=== PATIENT | female | born 1990 | race Caucasian/White ===

== ENCOUNTER 2019-03-09 16:42 | Emergency (ER) | payer OTHER ==
--- OUTSIDE RECORDS SUMMARY | 2019-03-09 17:07 | XMS REPORT | Continuity of Care Document ---
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 Onset: 06/10/2017 Mild intermittent asthma Maureen Rawls M.D. Onset: 06/10/2017 Malaise and fatigue Maureen Rawls M.D. Onset: 07/16/2017 Depressive disorder Angella Harp FNP Onset: 12/10/2017 Tobacco user Angella Harp FNP Onset: 12/10/2017 Disturbance in speech Angella Harp FNP Onset: 12/10/2017 Social History Type Date Description Comments Sex Unknown ETOH Use Denies alcohol use Tobacco Use Start: Unknown Heavy tobacco smoker (more than 10 cigarettes/day) Smoking Status Reviewed: 01/12/19 Heavy tobacco smoker (more than 10 cigarettes/day) Allergies, Adverse Reactions, Alerts Description No Known Drug Allergies Medications Active Medications SIG Qnty Indications Ordering Date Provider Quetiapine Fumarate take 1 tablet by 60tabs F41.9 Katiuska, 06/06/2018 mouth 1 hour prior Jenniferleigh, 25mg Tablets to sleep,if no 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 MACHINE OPERATOR improvement in 3 days,may try 2 tablets as needed up to 4 tablets at night Buspirone HCL take 1-2 tablet by 120tabs F41.9 Katiuska, 12/10/2017 5mg mouth three times a Jenniferleigh, Tablets day as needed for 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 MACHINE OPERATOR anxiety/panic attacks Terbinafine HCL apply to effected 30gm B35.1 Nayely, Mary, 09/14/2017 1% toenails bid PNP-BC, 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 MACHINE OPERATOR, Cream Ibclc Ventolin HFA 1-2 puffs every 4-6 8gm J45.20 Clune, 06/10/2017 hours as needed Angella, 108(90Base) mcg/Act 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 MACHINE OPERATOR Aerosol Lexapro 1/2 tablet by mouth 30tabs F41.9 Clune, 20mg every day x 1 week Angella Tablets then increase to 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 MACHINE OPERATOR full tablet Fluticasone Unknown Propionate 50mcg/Act Suspension Cephalexin Take One Capsule By Unknown 500mg Mouth Every 6 Hours Capsules Mupirocin Apply Three Times A Unknown 2% Day Ointment Immunizations CPT Code Status Date Vaccine Lot # 73051 Given 02/14/2018 Influenza Virus Vaccine, Quadrivalent, 36 Mos+, [id number] .[id number] 68446 Given 03/03/2012 flu vaccination 59100 Given 03/06/2011 flu vaccination 34662 Given 11/24/2010 Gardasil 96696 Given 09/23/2010 Gardasil 54265 Given 05/29/2010 Gardasil 65221 Given 02/25/2010 flu vaccination Vital Signs Date Vital Result Comment 01/12/2019 9:22am BP Systolic Sitting Right Arm 106 mmHg BP Diastolic Sitting Right Arm 68 mmHg Heart Rate 90 /min Respiratory Rate 17 /min Height 67 inches 5'7" Weight 204.00 lb BMI (Body Mass Index) 31.9 kg/m2 BSA (Body Surface Area) 2.04 m2 [place] body weight in kilograms 61 kg 08/18/2018 3:37pm BP Systolic 124 mmHg BP Diastolic 74 mmHg Heart Rate 112 /min Respiratory Rate 17 /min Height 67 inches 5'7" Weight 214.12 lb BMI (Body Mass Index) 33.5 kg/m2 BSA (Body Surface Area) 2.08 m2 [place]lass body weight in kilograms 61 kg O2 % BldC Oximetry 98 % Results Test Date Facility Test Result H/L Range Note Laboratory test 08/18/[address] Vitamin D,1,25 32.6 pg/mL 19.9-79.3 1, [address] Dihydroxy [place], [place] [id number] [phone] Thyroid Stim Hormone 1.64 uIU/mL Normal 0.30-4.20 CBC W/Automated 08/18/[address] [facility] [address] White Blood 7.2 K/uL Normal 3.1-10.[address] Count [place], [place] [id number] [phone] Red Blood Count 4.29 M/uL Normal 3.90-5.40 Hemoglobin 12.2 gm/dL Normal 11.6-15.8 Hematocrit 38.5 % Normal 36.0-46.1 Mean Cell Volume 89.7 fl Normal 80.9-99.0 Mean Corpuscular HGB 28.4 pg Normal 25.9-32.7 Mean Corpuscular HGB Conc 31.7 g/dL Normal 30.8-34.3 Platelet Count 198 K/uL Normal 155-360 3 Red Cell Distri Width SD 45.7 fl Normal 36-47 Red Cell Distri Width %CV 14.1 % Normal 11.7-14.4 Mean Platelet Volume 13.7 fl High 8.9-12.4 Neut% 71.6 % Normal 40.4-72.8 Lymph % 18.6 % Low 20.0-42.0 [place] % 7.7 % Normal 4.3-13.2 Eo% 1.5 % Normal 0.0-6.6 Bas% 0.3 % Normal 0.0-1.1 Immature Grans 0.3 % Normal 0.0-5.0 NRBC % 0.0 /100WBC < 10/ 100 WBC Neut# 5.18 K/uL Normal 1.8-7.0 Lymph # 1.35 K/uL Normal 1.0-4.0 [place] # 0.56 K/uL Normal 0.3-0.9 Eos # 0.11 K/uL Normal 0.0-0.5 Baso # 0.02 K/uL Normal 0.0-0.1 Immature Grans Absolute 0.02 K/uL NRBC # 0.00 K/uL Laboratory 08/08/2018 [facility] D-Dimer, 0.29 ug/mL 4, 5 test finding [address] [place] [address] [phone] Urine HCG 08/08/2018 [facility] Urine HCG NEGATIVE Negative 6 (Qualitative) [address] (Qualitative) [place] [address] [phone] Source: URINE, CLEAN CAT <SEE NOTE> 7 Ua RFX Micro & Culture 08/08/2018 [facility] Urine Color YELLOW Yellow II [address] [place] [address] [phone] Urine Clarity CLEAR Clear Urine Glucose - Dipstick NEGATIVE mg/dL Negative Urine Bilirubin - Dipstick NEGATIVE Negative Urine Ketone NEGATIVE mg/dL Negative Urine Specific [place] >= 1.030 Normal 1.010-1.030 Urine Blood NEGATIVE Negative Urine PH 5.5 Low 6.5-7.5 Urine Protein - Dipstick NEGATIVE mg/dL Negative Urine Urobilinogen - Dipstick 0.2 E.U./dL Normal 0.2-1.0 Urine Nitrite - Dipstick NEGATIVE Negative Urine Leuk Esterase NEGATIVE Negative Source: URINE, CLEAN CAT <SEE NOTE> 8 1 E55.9 R53.83 2 Performed at: [facility] [id number] Nib Adjuster: Maria Sharma MD, Phone: [phone] 3 CHECKED,PLT EST. AGREES WITH INSTRUMENT VALUE. LARGE PLATELETS PRESENT. 4 PETIT WITH URINATION, RIGHT ARM PAIN,LEFT RIB PAIN 5 <=0.49 ug/mL - Low likelihood of DIC, DVT or Pulmonary Embolism >0.49 ug/mL - Additional testing should be done to rule out DIC, DVT, or Pulmonary embolism as clinically indicated. ([facility] has established a 97.89% negative predictive value for thrombotic disease when a cutoff value of 0.5 ug/mL is used.) 6 FIRST MORNING SPECIMENS GENERALLY CONTAIN THE HIGHEST CONCENTRATION OF HCG AND ARE RECOMMENDED FOR EARLY DETECTION OF . Method: Quidel QuickVue One-Step Immunoassay 7 URINE, CLEAN CATCH 8 URINE, CLEAN CATCH Procedures Description No Information Available Medical Devices Description No Information Available Encounters Type Date Location Provider Dx Diagnosis Office Visit 08/18/2018 Family Medicine Kat[place]ka, M94.0 Chondrocostal 3:[address] Jenmelecioferleigh, junction syndrome 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 MACHINE OPERATOR [Tietze] R53.83 Other fatigue E55.9 Vitamin D deficiency, unspecified Assessments Date Code Description Provider 08/18/2018 M94.0 Chondrocostal junction syndrome [Tietze] Angella Harp FNP 08/18/2018 R53.83 Other fatigue Angella Harp FNP 08/18/2018 E55.9 Vitamin D deficiency, unspecified Angella Harp FNP Plan of Treatment No Information Available Functional Status Description No Information Available Mental Status Description No Information Available Referrals Description No Information Available
--- OUTSIDE RECORDS SUMMARY | 2019-03-09 17:07 | XMS REPORT | Continuity of Care Document ---
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 Problems Active Problems Provider Date Anxiety [...] Medications SIG Qnty Indications Ordering Date Provider Melatonin 1 by mouth and hour 100caps G47.9 Katiuska, 01/12/2019 10mg before bed for Jenniferleigh, Capsules sleep JUNIOR WEB DEVELOPER Fluconazole 1 by mouth by mouth 1tabs N76.[facility] 01/12/2019 150mg after completing Jenniferleigh, Tablets antibiotic use JUNIOR WEB DEVELOPER Quetiapine Fumarate take 1 tablet by 60tabs F41.9 Katiuska, 06/06/2018 mouth 1 hour prior Jenniferleigh, 25mg Tablets to sleep,if no JUNIOR WEB DEVELOPER improvement in 3 days,may try 2 tablets as needed up to 4 tablets at night Buspirone HCL take 1-2 tablet by 120tabs F41.9 Clune, 12/10/2017 5mg mouth three times a Jenmelecioferleigh, Tablets day as needed for JUNIOR WEB DEVELOPER anxiety/panic attacks Terbinafine HCL apply to effected 30gm B35.1 Mary Adler, 09/14/2017 1% toenails bid PNP-BC, JUNIOR WEB DEVELOPER, Cream Ibclc Ventolin HFA 1-2 puffs every 4-6 8gm J45.20 Clune, 06/10/2017 hours as needed Angella, 108(90Base) mcg/Act JUNIOR WEB DEVELOPER Aerosol Lexapro 1/2 tablet by mouth 30tabs F41.9 Clune, 20mg every day x 1 week Angella, Tablets then increase to JUNIOR WEB DEVELOPER full tablet Fluticasone Unknown Propionate 50mcg/Act Suspension Cephalexin Take One Capsule By Unknown 500mg Mouth Every 6 Hours Capsules Mupirocin Apply Three Times A Unknown 2% Day Ointment Immunizations CPT Code Status Date Vaccine Lot # 31341 Given 02/14/2018 Influenza Virus Vaccine, Quadrivalent, 36 Mos+, [id number] .[id number] 71024 Given 03/03/2012 flu vaccination 48955 Given 03/06/2011 flu vaccination 94426 Given 11/24/2010 Gardasil 44088 Given 09/23/2010 Gardasil 52913 Given 05/29/2010 Gardasil 95411 Given 02/25/2010 flu vaccination Vital Signs Date Vital Result Comment 01/12/2019 9:22am BP Systolic Sitting Right Arm 106 mmHg BP Diastolic Sitting Right Arm 68 mmHg Heart Rate 90 /min Respiratory Rate 17 /min Height 67 inches 5'7" Weight 204.00 lb BMI (Body Mass Index) 31.9 kg/m2 BSA (Body Surface Area) 2.04 m2 [place] body weight in kilograms 61 kg 08/18/2018 3:37pm BP Systolic 124 mmHg BP Diastolic 74 mmHg Heart Rate 112 /min Respiratory Rate 17 /min Height 67 inches 5'7" Weight 214.12 lb BMI (Body Mass Index) 33.5 kg/m2 BSA (Body Surface Area) 2.08 m2 [place] body weight in kilograms 61 kg O2 % BldC Oximetry 98 % Results Test Date Facility Test Result H/L Range Note Urine Dipstick 01/12/2019 [facility] Ua Color Yellow Yellow Ua Clarity Clear Clear Ua Leuko neg Negative Ua Nitrite neg Negative Ua Urobilinogen 3.5 High 0.2 - 1.0 E.U./dL Ua Protein trace Negative Ua PH 5.5 Low 6.5-7.5 Ua Blood trace Negative Ua Specific [place] 1.030 1.010-1.030 Ua Ketones trace Negative Ua Bilirubin neg Negative Ua Glucose neg Negative Laboratory test 08/18/[address] Vitamin D,1,25 32.6 19.9- 79.3 1, [address] Dihydroxy pg/[place] [address] [phone] Thyroid Stim Hormone 1.64 uIU/mL Normal 0.30-4.20 CBC W/Automated 08/18/[address] White Blood 7.2 K/uL Normal 3.1-10.[address] [place] [address] [phone] Red Blood Count 4.29 M/uL Normal 3.90-5.40 [...] 40.4-72.8 Lymph % 18.6 % Low 20.0-42.0 [place] % 7.7 % Normal 4.3-13.2 Eo% 1.5 % Normal 0.0-6.6 Bas% 0.3 % Normal 0.0-1.1 Immature Grans 0.3 % Normal 0.0-5.0 NRBC % 0.0 /100WBC < 10/ 100 WBC Neut# 5.18 K/uL Normal 1.8-7.0 Lymph # 1.35 K/uL Normal 1.0-4.0 [place] # 0.56 K/uL Normal 0.3-0.9 Eos # 0.11 K/uL Normal 0.0-0.5 Baso # 0.02 K/uL Normal 0.0-0.1 Immature Grans Absolute 0.02 K/uL NRBC # 0.00 K/uL Laboratory 08/08/2018 [facility] D-Dimer, 0.29 ug/mL 4, 5 test finding [address] [place] [address] [phone] Urine HCG 08/08/2018 [facility] Urine HCG NEGATIVE Negative 6 (Qualitative) [address] (Qualitative) [place] [address] [phone] Source: URINE, CLEAN CAT <SEE NOTE> 7 Ua RFX Micro & Culture 08/08/2018 [facility] Urine Color YELLOW Yellow II [address] [place] [address] [phone] Urine Clarity CLEAR Clear Urine Glucose - Dipstick NEGATIVE mg/dL Negative Urine Bilirubin - Dipstick NEGATIVE Negative Urine Ketone NEGATIVE mg/dL Negative Urine Specific [place] >= 1.030 Normal 1.010-1.030 Urine Blood NEGATIVE Negative Urine PH 5.5 Low 6.5-7.5 Urine Protein - Dipstick NEGATIVE mg/dL Negative Urine Urobilinogen - Dipstick 0.2 E.U./dL Normal 0.2-1.0 Urine Nitrite - Dipstick NEGATIVE Negative Urine Leuk Esterase NEGATIVE Negative Source: URINE, CLEAN CAT <SEE NOTE> 8 1 E55.9 R53.83 2 Performed at: - [facility] [id number] Tower Erector: Maria Sharma MD, Phone: [phone] 3 CHECKED,PLT EST. AGREES WITH INSTRUMENT VALUE. LARGE PLATELETS PRESENT. 4 PETIT WITH URINATION, RIGHT ARM PAIN,LEFT RIB PAIN 5 <=0.49 ug/mL - Low likelihood of DIC, DVT or Pulmonary Embolism >0.49 ug/mL - Additional testing should be done to rule out DIC, DVT, or Pulmonary embolism as clinically indicated. ([facility] has established a 97.89% negative predictive value [...] Dx Diagnosis Office Visit 08/18/2018 Family Medicine Clbhargav, M94.0 Chondrocostal 3:[address] Jenniferleigh, junction syndrome JUNIOR WEB DEVELOPER [Tietze] R53.83 Other fatigue E55.9 Vitamin D deficiency, unspecified Assessments Date Code Description Provider 01/12/2019 F41.9 Anxiety disorder, unspecified Clune, Angella, JUNIOR WEB DEVELOPER 01/12/2019 G47.9 Sleep disorder, unspecified Clune, Jenniferradhagh, JUNIOR WEB DEVELOPER 01/12/2019 Z20.2 Contact with and (suspected) exposure to Clbhargav, Jenmelecioferleigh, JUNIOR WEB DEVELOPER infections with a predominantly sexual mode of transmission 01/12/2019 N76.0 Acute vaginitis CluneOksanadarapatrice, JUNIOR WEB DEVELOPER 08/18/2018 M94.0 Chondrocostal junction syndrome [Tietze] CluneOksanadarapatrice, JUNIOR WEB DEVELOPER 08/18/2018 R53.83 Other fatigue Clbhargav, Oksanadarapatrice, JUNIOR WEB DEVELOPER 08/18/2018 E55.9 Vitamin D deficiency, unspecified Clune, Jenniferleigh, JUNIOR WEB DEVELOPER Plan of Treatment 01/12/2019 - Angella Harp, FNPF41.9 Anxiety disorder, unspecifiedComments:Doing well. OK to continue on Buspirone as neededI am concerned that if your sleep doesn't improve,this will affect and increase anxiety.G47.9 Sleep disorder, unspecifiedNew Medication:Melatonin 10 mg - 1 by mouth and hour before bed for sleepComments:as your sleep habits affect getting to work on time or getting the kids to schoolI recommend avoiding TV for an hour prior to bed You can try over the counter melatonin, 10 mg to see if this helps. Use at least an hour before bedtime Work to getting a set bedtime as well as set wake time. Avoid daytime napping. if this doesn't help, would consider 10 mg amitriptylineFollow up:2-3 weeks for f/u uhdgcD56.2 Contact with and (suspected) exposure to infections with a predominantly sexual mode of transmissionNew Labs:Affirm Vaginitis Panel, Ordered: 01/12/19HIV Screen 4TH Gen Reflex, Ordered: 01/12/19Chlam/GC/Trichomonas PCR, Ur, Ordered: 01/12/19HSV I & II Igg Type Specific, Ordered: 01/12/19N76.0 Acute vaginitisNew Medication:Fluconazole 150 mg - 1 by mouth by mouth after completing antibiotic useComments:most likely + yeast due to ABx use - will send in diflucan to use once Abx is completed Functional Status Description No Information Available Mental Status Description No Information Available Referrals Description No Information Available
--- OUTSIDE RECORDS SUMMARY | 2019-03-09 17:07 | XMS REPORT | Continuity of Care Document ---
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 Active Problems Provider Date Anxiety [...] (more than 10 cigarettes/day) Smoking Status Reviewed: 01/31/19 Heavy tobacco smoker (more than 10 cigarettes/day) Allergies, Adverse Reactions, Alerts Description No Known Drug Allergies Medications Active Medications SIG Qnty Indications Ordering Date Provider Betamethasone apply sparingly 15gm L30.9 [place], 01/31/2019 Valerate to affected area Angella 0.1% Cream of outer ear [employer] Buspirone HCL take 1-2 tablet 120tabs F41.9 Clbhargav, 12/10/2017 5mg by mouth three Angella Tablets times a day as [employer] needed for anxiety/panic attacks Terbinafine HCL apply to effected 30gm B35.1 Mary Adler 09/14/2017 1% toenails bid PNP-BC, [employer], Cream Ibclc Ventolin HFA 1-2 puffs every 8gm J45.20 [facility], 06/10/2017 4-6 hours as Kokiradhajesi, 108(90Base) mcg/Act needed [employer] Aerosol History Medications Metronidazole one by mouth 14tabs Clbhargav, 01/19/2019 - 500mg twice a day x 7 JenniferDELFINO ibrahim 01/26/2019 Tablets days Melatonin 1 by mouth and 100caps G47.9 [place], 01/12/2019 - 10mg hour before bed DELFINO Perales 01/31/2019 Capsules for sleep Fluconazole 1 by mouth by 1tabs N76.0 [place], 01/12/2019 - 150mg mouth after DELFINO Perales 01/28/2019 Tablets completing antibiotic use Immunizations CPT Code Status Date Vaccine Lot # [id number] Given 01/31/2019 Influenza Virus Vaccine, Quadrivalent, 36 Mos+, [id number] .5ML 88044 Given 02/14/2018 Influenza Virus Vaccine, Quadrivalent, 36 Mos+, [id number] .5ML 33723 Given 03/03/2012 flu vaccination 97812 Given 03/06/2011 flu vaccination 32456 Given 11/24/2010 Gardasil 82147 Given 09/23/2010 Gardasil 06183 Given 05/29/2010 Gardasil 23009 Given 02/25/2010 flu vaccination Vital Signs Date Vital Result Comment 01/31/2019 1:47pm BP Systolic 118 mmHg BP Diastolic 72 mmHg Body Temperature 97.8 F Heart Rate 87 /min Respiratory Rate 16 /min Height 67 inches 5'7" Weight 205.00 lb BMI (Body Mass Index) 32.1 kg/m2 BSA (Body Surface Area) 2.04 m2 [place] body weight in kilograms 61 kg O2 % BldC Oximetry 98 % 01/12/2019 9:22am BP Systolic Sitting Right Arm 106 mmHg BP Diastolic Sitting Right Arm 68 mmHg Heart Rate 90 /min Respiratory Rate 17 /min Height 67 inches 5'7" Weight 204.00 lb BMI (Body Mass Index) 31.9 kg/m2 BSA (Body Surface Area) 2.04 m2 [place] body weight in kilograms 61 kg Results Test Date Facility Test Result H/L Range Note Affirm 01/12/[address] Trichomonas Negative [Negative] 1 Vaginitis Panel [address] [place] [address] [phone] Gardnerella vaginalis POSITIVE Abnormal [Negative] Jacquie species Negative [Negative] 2 HIV Screen 01/12/[address] HIV Screen 4th Non Reactive Non Reactive 3 4TH Gen [address] Generation wRfx Reflex [place], [place] [id number] [phone] Chlam/GC/Tr 01/12/[address] Ur Trichomonas NEGATIVE Negative ichomonas [address] vaginalis,PCR PCR, [place] [address] [phone] Ur Chlamydia trachomatis,PCR NEGATIVE Negative Ur Neisseria gonorrhoeae,PCR NEGATIVE Negative 4 HSV I & II Igg 01/12/[address] HSV II,Igg,Type <0.91 0.00- 0.90 5 Type Specific [address] [place] [address] [phone] HSV Type I Specific Igg 45.20 index High 0.00-0.90 6 Urine Dipstick 01/12/2019 [facility] Ua Color Yellow Yellow Ua Clarity Clear Clear Ua Leuko neg Negative Ua Nitrite neg Negative Ua Urobilinogen 3.5 High 0.2 - 1.0 E.U./dL Ua Protein trace Negative Ua PH 5.5 Low 6.5-7.5 Ua Blood trace Negative Ua Specific [place] 1.030 1.010-1.030 Ua Ketones trace Negative Ua Bilirubin neg Negative Ua Glucose neg Negative Laboratory test 08/18/[address] Vitamin D,1,25 32.6 19.9- 79.3 7, [address] Dihydroxy pg/[place] [address] [phone] Thyroid Stim Hormone 1.64 uIU/mL Normal 0.30-4.20 CBC W/Automated 08/18/[address] White Blood 7.2 K/uL Normal 3.1-10.[address] [place] [address] [phone] Red Blood Count 4.29 M/uL Normal 3.90-5.40 Hemoglobin 12.2 gm/dL Normal 11.6-15.8 Hematocrit 38.5 % Normal 36.0-46.1 Mean Cell Volume 89.7 fl Normal 80.9-99.0 Mean Corpuscular HGB 28.4 pg Normal 25.9-32.7 Mean Corpuscular HGB Conc 31.7 g/dL Normal 30.8-34.3 Platelet Count 198 K/uL Normal 155-360 9 Red Cell Distri Width SD 45.7 fl Normal 36-47 Red Cell Distri Width %CV 14.1 % Normal 11.7-14.4 Mean Platelet Volume 13.7 fl High 8.9-12.4 Neut% 71.6 % Normal 40.4-72.8 Lymph % 18.6 % Low 20.0-42.0 [place] % 7.7 % Normal 4.3-13.2 Eo% 1.5 % Normal 0.0-6.6 Bas% 0.3 % Normal 0.0-1.1 Immature Grans 0.3 % Normal 0.0-5.0 NRBC % 0.0 /100WBC < 10/ 100 WBC Neut# 5.18 K/uL Normal 1.8-7.0 Lymph # 1.35 K/uL Normal 1.0-4.0 [place] # 0.56 K/uL Normal 0.3-0.9 Eos # 0.11 K/uL Normal 0.0-0.5 Baso # 0.02 K/uL Normal 0.0-0.1 Immature Grans Absolute 0.02 K/uL NRBC # 0.00 K/uL Laboratory 08/08/2018 [facility] D-Dimer, 0.29 ug/mL 10, 11 test finding [address] [place] [address] [phone] Urine HCG 08/08/2018 [facility] Urine HCG NEGATIVE Negative 12 (Qualitative) [address] (Qualitative) [place] [address] [phone] Source: URINE, CLEAN CAT <SEE NOTE> 13 Ua RFX Micro & Culture 08/08/2018 [facility] Urine Color YELLOW Yellow II [address] [place] [address] [phone] Urine Clarity CLEAR Clear Urine Glucose - Dipstick NEGATIVE mg/dL Negative Urine Bilirubin - Dipstick NEGATIVE Negative Urine Ketone NEGATIVE mg/dL Negative Urine Specific [place] >= 1.030 Normal 1.010-1.030 Urine Blood NEGATIVE Negative Urine PH 5.5 Low 6.5-7.5 Urine Protein - Dipstick NEGATIVE mg/dL Negative Urine Urobilinogen - Dipstick 0.2 E.U./dL Normal 0.2-1.0 Urine Nitrite - Dipstick NEGATIVE Negative Urine Leuk Esterase NEGATIVE Negative Source: URINE, CLEAN CAT <SEE NOTE> 14 1 Z20.2 2 Method: BD Affirm VPIII DNA Probe Assay 3 Performed at: [address] [id number] Recording Clerk: Renuka Moreno MD, Phone: [phone] 4 A negative result for either C. trachomatis and/or N. gonorrhoeae does not preclued an infection because results are dependent on adequate specimen collection, absence of inhibitors, and sufficient DNA to be detected. 5 Negative <0.91 Equivocal 0.91 - 1.09 Positive >1.09 Note: Negative indicates no antibodies detected to HSV-2. Equivocal may suggest early infection. If clinically appropriate, retest at later date. Positive indicates antibodies detected to HSV-2. 6 Negative <0.91 Equivocal 0.91 - 1.09 Positive >1.09 Note: Negative indicates no antibodies detected to HSV-1. Equivocal may suggest early infection. If clinically appropriate, retest at later date. Positive indicates antibodies detected to HSV-1. Performed at: [address] [id number] Recording Clerk: Renuka Moreno MD, Phone: [phone] E55.9 R53.83 8 Performed at: [address] [id number] Recording Clerk: Maria Sharma MD, Phone: [phone] CHECKED,PLT EST. AGREES WITH INSTRUMENT VALUE. LARGE PLATELETS PRESENT. 10 PETIT WITH URINATION, RIGHT ARM PAIN,LEFT RIB PAIN 11 <=0.49 ug/mL - Low likelihood of DIC, DVT or Pulmonary Embolism >0.49 ug/mL - Additional testing should be done to rule out DIC, DVT, or Pulmonary embolism as clinically indicated. ([facility] has established a 97.89% negative predictive value for thrombotic disease when a cutoff value of 0.5 ug/mL is used.) 12 FIRST MORNING SPECIMENS GENERALLY CONTAIN THE HIGHEST CONCENTRATION OF HCG AND ARE RECOMMENDED FOR EARLY DETECTION OF . Method: Quidel QuickVue One-Step Immunoassay 13 URINE, CLEAN CATCH 14 URINE, CLEAN CATCH Procedures Description No Information Available Medical Devices Description No Information Available Encounters Type Date Location Provider Dx Diagnosis Office Visit 01/31/2019 [facility] Kat[place], L30.9 Dermatitis, 1:30p [address] [place], unspecified [employer] G47.9 Sleep disorder, unspecified Z23 Encounter for immunization Office Visit 01/12/2019 Family [place], F41.9 Anxiety disorder, 9:[address] [facility] [place], VIOLIN RESTORER unspecified RD G47.9 Sleep disorder, unspecified Z20.2 Contact w and exposure to infect w a sexl mode of transmiss N76.0 Acute vaginitis Office Visit 08/18/2018 [facility] [place], 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 Chondrocostal 3:15p [facility] [place], VIOLIN RESTORER junction syndrome RD [Tietze] R53.83 Other fatigue E55.9 Vitamin D deficiency, unspecified Assessments Date Code Description Provider 01/31/2019 L30.9 Dermatitis, unspecified Clune, Jenniferleigh, VI[employer]ER 01/31/2019 G47.9 Sleep disorder, unspecified Clune, Jenniferleigh, VIOLIN [employer]ORER 01/31/2019 Z23 Encounter for immunization Clune, Jenniferleigh, VIOLIN [employer]ORER 01/12/2019 F41.9 Anxiety disorder, unspecified Clune, Jenniferleigh, VIOLIN [employer]ORER 01/12/2019 G47.9 Sleep disorder, unspecified Clune, Jenniferleigh, VIOLIN RESTORER 01/12/2019 Z20.2 Contact with and (suspected) exposure to Clune, Jenniferleigh, VIOLIN [employer]ER infections with a predominantly sexual mode of transmission 01/12/2019 N76.0 Acute vaginitis Clune, Jenniferleigh, VIOLIN [employer]ORER 08/18/2018 M94.0 Chondrocostal junction syndrome [Tietze] Clune, Jenniferleigh, VIOLIN REST[employer]ER 08/18/2018 R53.83 Other fatigue Clune, Jenniferleigh, VIOLIN [employer]ER 08/18/2018 E55.9 Vitamin D deficiency, unspecified Clune, Jenniferleigh, VIOLIN [employer]ER Plan of Treatment 01/31/2019 - Angella Harp, RINAPL30.9 Dermatitis, unspecifiedNew Medication:Betamethasone Valerate 0.1 % - apply sparingly to affected area of outer earComments:suspect possible psoriasis due to silvery white scaling appearance - will start steroid cream.G47.9 Sleep disorder, unspecifiedComments: doing well off medications - continue on good sleep habits and routines.Z23 Encounter for immunizationComments:yearly influenza immunization given today Functional Status Description No Information Available Mental Status Description No Information Available Referrals Description No Information Available
[2019-03-09 17:20] VITALS: BP 103/66
--- NOTE | 2019-03-09 17:51 | UC ---
Dental HPI - HPI Summary HPI Summary: Pt presents with c/o right upper dental infection s/p having multiple teeth removed 3 days ago. Pt states that she noticed swellign and green colored discharge from the extraction site. - History of Current Complaint Chief Complaint: UCDentalProblem Stated Complaint: ORAL COMPLAINT Time Seen by Provider: 03/09/19 17:48 Hx Obtained From: Patient Hx Last Menstrual Period: 03/07/18 ?: No Onset/Duration: Sudden Onset, Lasting Days, Still Present Severity: Mild Pain Intensity: 0 Aggravating Factor(s): Chewing Related History: Previous Dental Care on Same Tooth, Discharge, Swelling - Allergies/Home Medications Allergies/Adverse Reactions: Allergies Allergy/AdvReac Type Severity Reaction Status Date / Time No Known Allergies Allergy Verified 03/09/19 17:20 Home Medications: Home Medications Fluticasone NASAL SPRAY 50MCG* [Flonase NASAL SPRAY 50MCG*] 2 spray BOTH NARES DAILY PRN 03/09/19 [History Confirmed 03/09/19] PMH/Surg Hx/FS Hx/Imm Hx Previously Healthy: Yes - Surgical History Surgical History: Yes Surgery Procedure, Year, and Place: . left femur repair - Family History Known Family History: Positive: Non-Contributory - Social History Occupation: Employed Full-time Lives: With Family Alcohol Use: None Substance Use Type: None Smoking Status (MU): Heavy Every Day Tobacco Smoker Type: Cigarettes Amount Used/How Often: 1/2ppd Have You Smoked in the Last Year: Yes Review of Systems All Other Systems Reviewed And Are Negative: Yes Constitutional: Positive: Negative Skin: Positive: Negative Eyes: Positive: Negative ENT: Positive: Dental Pain Respiratory: Positive: Negative Cardiovascular: Positive: Negative Gastrointestinal: Positive: Negative Genitourinary: Positive: Negative Motor: Positive: Negative Neurovascular: Positive: Negative Musculoskeletal: Positive: Negative Neurological: Positive: Negative Psychological: Positive: Negative Is Patient Immunocompromised?: No Physical Exam Triage Information Reviewed: Yes Appearance: Well-Appearing Vital Signs: Initial Vital Signs Temp 98.7 F 03/09/19 17:15 Pulse 89 03/09/19 17:15 Resp 18 03/09/19 17:15 BP 103/66 03/09/19 17:15 Pulse Ox 98 03/09/19 17:15 Vital Signs Reviewed: Yes Eye Exam: Normal ENT Exam: Normal ENT: Positive: Hearing grossly normal Dental: Positive: Other: - extraction site appears to be healing, pt c/o tenderness and purulent discharge and dentist recommended antibiotic Neck exam: Normal Respiratory: Positive: No respiratory distress Musculoskeletal Exam: Normal Neurological Exam: Normal Psychological Exam: Normal Skin Exam: Normal Dental Complaint Course/Dx - Differential Dx/Diagnosis Differential Diagnosis/Dx: Dental Abscess Provider Diagnosis: Dental infection Discharge ED - Sign-Out/Discharge Documenting (check all that apply): Patient Departure All imaging exams completed and their final reports reviewed: No Studies - Discharge Plan Condition: Stable Disposition: HOME Prescriptions: Amoxicillin PO (*) [Amoxicillin 875 MG (*)] 875 mg PO Q12H #20 tab Patient Education Materials: Dental Abscess (ED) Referrals: Koki Harp NP [Primary Care Provider] - If Needed - Billing Disposition and Condition Condition: STABLE Disposition: Home
== END 2019-03-09 17:57 | disposition home or self-care (01) ==
LOC: UCCORT 16:42
DX: K04.7 Periapical abscess without sinus (principal); F17.210 Nicotine dependence, cigarettes, uncomplicated
CPT/HCPCS: 99212; G0463

== ENCOUNTER 2019-06-04 12:21 | Emergency (ER) | payer OTHER ==
--- NOTE | 2019-06-04 13:37 | UC ---
Respiratory Complaint HPI - HPI Summary HPI Summary: Patient is a 29 year old female , who present today to the urgent care with upper respiratory symptoms for past 2 weeks She reports Headache and right ear pain for two weeks. Chest congestion for one week. No known fever. Started noticing cough today which is productive along with some sore throat Denies any new soap, detergent , cosmetics, food or a possible exposure. Denies any chest pain or shortness of breath . . Denies any abdominal pain , nausea or vomiting , diarrhea or constipation. - History of Current Complaint Stated Complaint: CHEST CONGESTION, COUGH Time Seen by Provider: 06/04/19 13:34 Hx Obtained From: Patient Hx Last Menstrual Period: 05/17/19 ?: No - Allergies/Home Medications Allergies/Adverse Reactions: Allergies Allergy/AdvReac Type Severity Reaction Status Date / Time No Known Allergies Allergy Verified 06/04/19 13:35 PMH/Surg Hx/FS Hx/Imm Hx - Additional Past Medical History Additional PMH: Past Medical History : Anxiety Past Surgical History: , left femur ORIF Family History : non contributory Social History : Occasional alcohol, heavy daily smoker, no drug use. Previously Healthy: Yes - Surgical History Surgical History: Yes Surgery Procedure, Year, and Place: . left femur repair - Family History Known Family History: Positive: Non-Contributory - Social History Alcohol Use: None Substance Use Type: None Smoking Status (MU): Heavy Every Day Tobacco Smoker Type: Cigarettes Amount Used/How Often: 1/2ppd Have You Smoked in the Last Year: Yes Review of Systems All Other Systems Reviewed And Are Negative: Yes Constitutional: Positive: Negative Skin: Positive: Negative Eyes: Positive: Negative ENT: Positive: Sore Throat, Ear Ache - Right, Other - Congestion Respiratory: Positive: Cough Cardiovascular: Positive: Negative Gastrointestinal: Positive: Negative Genitourinary: Positive: Negative Motor: Positive: Negative Neurovascular: Positive: Negative Musculoskeletal: Positive: Negative Neurological: Positive: Headache Psychological: Positive: Negative Is Patient Immunocompromised?: No Physical Exam - Summary Physical Exam Summary: Physical Exam: Const: Appears well. No signs of apparent distress present. Alert and oriented x 3. Musculo: Walks with a normal gait. Head/Face: Atraumatic, normocephalic on inspection. Eyes: EOMI and PERRLA in both eyes. Conjunctivae clear. No discharge noted ENT: Hearing normal, TM normal appearing bilaterally, non bulging , non erythematous . No tenderness to palpation on maxillary and frontal sinus. Mild pharyngeal erythema without exudates . Uvula is midline. No cervical or submandibular lymphadenopathy noted. Respiratory: Respirations are unlabored. Lungs clear to auscultation bilaterally, no wheezing , rhonchi or rales noted . CVS: Regular rate and Rhythm, S1S2 normal , no murmurs identified. Extremities: Peripheral circulation is grossly normal. Pulses 2+ Abdomen : Soft non tender , nondistended , Bowel sounds present . No guarding , rebound tenderness or rigidity noted. Skin: No lesions or rash located on the upper extremities or on the lower extremities. Neuro: Cranial nerves II to XII intact, motor and sensory intact. DTR Intact bilaterally. Mood is normal. Affect is normal. Triage Information Reviewed: Yes Vital Signs Reviewed: Yes Respiratory Course/Dx - Course Course Of Treatment: During the visit today, we discussed the findings which appeared to be consistent with atypical pneumonia and further plan to treat it with antibiotics. Will consider anti-allergic /decongestant as well. I will prescribe the medication to the pharmacy . Patient expressed understanding . - Differential Dx/Diagnosis Provider Diagnosis: Atypical pneumonia Discharge ED - Sign-Out/Discharge Documenting (check all that apply): Patient Departure All imaging exams completed and their final reports reviewed: No Studies - Discharge Plan Condition: Stable Disposition: HOME Prescriptions: Azithromyxin CRISSY (NF) [Z-Crissy (Zithromax) 250 mg tabs #6] 2 tab PO .TODAY, THEN 1 DAILY #6 tab Loratadine/Pseudoephedrine [Claritin-D 24 Hour Tablet] 1 each PO DAILY 10 Days # 1 tab.er.24h Patient Education Materials: Pneumonia (ED) Referrals: Koki Harp NP [Primary Care Provider] - 1 Week Additional Instructions: Please start taking the medication as prescribed to the pharmacy . Intake and hydration, Tylenol or ibuprofen as needed for fever Follow up with your primary care doctor in 1 week Patients blood pressure slightly high in Urgent care today in prehypertensive range , plan follow up with PCP for better control Return to Urgent care / ER if symptoms get worse. - Billing Disposition and Condition Condition: STABLE Disposition: Home
[2019-06-04 13:38] VITALS: BP 128/75
== END 2019-06-04 14:14 | disposition home or self-care (01) ==
LOC: UCCORT 12:21
DX: J18.9 Pneumonia, unspecified organism (principal); J02.9 Acute pharyngitis, unspecified; R51 Headache; H92.01 Otalgia, right ear; F17.210 Nicotine dependence, cigarettes, uncomplicated
CPT/HCPCS: 99212; G0463